=== PATIENT | female | born 1950 | race African-American/Black ===

== ENCOUNTER 2024-10-01 16:17 | Inpatient (IN) | payer OTHER ==
[~2024-10-01] VITALS: Ht 165.1 cm; Wt 69.9 kg
[2024-10-01 16:23] VITALS: O2SAT 99
[2024-10-01] MEDS: LORAZEPAM 1MG TABLET PO ONE (16:51)
[2024-10-01 17:32] LABS: BASOPHILS % 0.6 % (0.0-2.0); EOSINOPHILS % 0.7 % (0.0-5.0); HEMATOCRIT. 47.5 % (36.0-48.0); HEMOGLOBIN. 16.0 g/dL (12.0-16.0); LYMPHOCYTES % 21.9 % (20.0-50.0); MEAN PLATELET VOLUME 8.3 fl (7.4-10.4); MONOCYTES % 6.2 % (2.0-8.0); NEUTROPHILS % 70.6 % (40.0-76.0); PLATELET 203 x1000/uL (130-400); RED BLOOD CELL COUNT 5.28 mill/uL (4.2-5.4); RED CELL DISTRIBUTION WIDTH 14.9 % (11.6-14.6)
[2024-10-01 17:47] LABS: CREATININE 1.0 mg/dL (0.6-1.0); ETHANOL BLOOD < 10 mg/dL (<10); INR 1.0; TROPONIN I HIGH SENSITIVITY 34 ng/L (3.0-34); UREA NITROGEN BLOOD 12 mg/dL (9-23)
[2024-10-01 17:48] LABS: ASPARTATE AMINOTRANSFERASE 15 IU/L (<34)
[2024-10-01 17:49] LABS: BILIRUBIN DIRECT 0.2 mg/dL (<=3.0); BILIRUBIN TOTAL 0.7 mg/dL (0.1-1.0); PROTEIN TOTAL 7.7 g/dL (6.0-8.3)
[2024-10-01] MEDS: POTASSIUM CHLORIDE 20MEQ/PACKET PO NR (18:33)
[2024-10-01] MEDS: KCL 10MEQ/50ML PREMIX 50 ML IV NR (19:06)
[2024-10-01 23:00] VITALS: BP 161/95; PULSE 85; RESP 20; TEMP 36.4736
[2024-10-01] MEDS: LORAZEPAM 0.5MG TABLET PO PRN (23:28)
[2024-10-01] MEDS: CLONIDINE 0.1MG TABLET PO PRN (23:28)
[2024-10-02] VITALS: BP 137/86; PULSE 64; RESP 20; TEMP 36.6; O2SAT 95
[2024-10-02 04:00] VITALS: BP 106/67; PULSE 55; RESP 20; TEMP 36.9; O2SAT 92
[2024-10-02] MEDS ORDERED: AMLO5TAB5 PO (06:50)
[2024-10-02 07:14] LABS: BASOPHILS % 0.6 % (0.0-2.0); EOSINOPHILS % 0.5 % (0.0-5.0); HEMATOCRIT. 41.9 % (36.0-48.0); HEMOGLOBIN. 14.2 g/dL (12.0-16.0); LYMPHOCYTES % 20.0 % (20.0-50.0); MEAN PLATELET VOLUME 8.3 fl (7.4-10.4); MONOCYTES % 5.2 % (2.0-8.0); NEUTROPHILS % 73.7 % (40.0-76.0); PLATELET 183 x1000/uL (130-400); RED BLOOD CELL COUNT 4.70 mill/uL (4.2-5.4); RED CELL DISTRIBUTION WIDTH 14.6 % (11.6-14.6)
[2024-10-02 07:29] LABS: CREATININE 0.9 mg/dL (0.6-1.0); UREA NITROGEN BLOOD 15 mg/dL (9-23)
[2024-10-02 07:31] LABS: ASPARTATE AMINOTRANSFERASE 13 IU/L (<34)
[2024-10-02 07:32] LABS: BILIRUBIN TOTAL 0.7 mg/dL (0.1-1.0); PROTEIN TOTAL 6.5 g/dL (6.0-8.3)
[2024-10-02 08:00] VITALS: BP 127/86; PULSE 50; RESP 20; TEMP 36.4; O2SAT 94
[2024-10-02] MEDS ORDERED: ACETAMINOPHEN 325MG TABLET PO PRN (09:45)
[2024-10-02] MEDS ORDERED: ONDANSETRON HCL 4MG/2ML INJ IV PRN (09:45)
[2024-10-02] MEDS ORDERED: IPRATROPIUM/ALBUTEROL 0.5-3(2.5)MG/3ML NEB HHN PRN (09:45)
[2024-10-02] MEDS: FAMOTIDINE 20MG/2ML VIAL IV SCH (11:00)
[2024-10-02 11:38] LABS: CREATINE KINASE MB FRACTION 1.4 ng/mL (0.5-3.6)
[2024-10-02 11:46] LABS: TROPONIN I HIGH SENSITIVITY 45.0 ng/L (3.0-34)
[2024-10-02 12:00] VITALS: BP 111/79; PULSE 61; RESP 18; TEMP 36.4; O2SAT 96
[2024-10-02 13:30] LABS: CREATINE KINASE MB FRACTION < 0.5 ng/mL (0.5-3.6)
[2024-10-02 14:01] LABS: TROPONIN I HIGH SENSITIVITY 48 ng/L (3.0-34)
[2024-10-02 16:00] VITALS: BP 115/72; PULSE 60; RESP 19; TEMP 36.6; O2SAT 97
[2024-10-02 20:00] VITALS: BP 102/57; PULSE 52; RESP 17; TEMP 36.2; O2SAT 97
[2024-10-02] MEDS: ENOXAPARIN 40MG/0.4ML SYR SUBCUT SCH (21:09)
[2024-10-02] MEDS: ACETAMINOPHEN 325MG TABLET PO PRN (21:39)
[2024-10-03] VITALS: BP 105/67; PULSE 57; RESP 18; TEMP 36.5; O2SAT 94
[2024-10-03 04:00] VITALS: BP 111/59; PULSE 60; RESP 18; TEMP 36.6; O2SAT 99
[2024-10-03] MEDS: ASPIRIN 81MG TABLET PO SCH (10:15)
[2024-10-03 16:00] VITALS: BP 135/80; PULSE 70; RESP 19; TEMP 36.4; O2SAT 97
[2024-10-03 20:00] VITALS: BP 106/78; PULSE 77; RESP 18; TEMP 36.5; O2SAT 95
[2024-10-03] MEDS: ATORVASTATIN CALCIUM 40MG TABLET PO SCH (20:20)
[2024-10-04] VITALS: BP 108/62; PULSE 55; RESP 18; TEMP 36.3; O2SAT 94
[2024-10-04 04:00] VITALS: BP 105/65; PULSE 55; RESP 16; TEMP 36.6; O2SAT 97
[2024-10-04 08:00] VITALS: BP 131/64; PULSE 72; RESP 18; TEMP 36.9; O2SAT 98
[2024-10-04] MEDS: AMLODIPINE 5MG TABLET PO SCH (09:12)
[2024-10-04 12:00] VITALS: BP 128/60; PULSE 68; RESP 19; TEMP 36.2; O2SAT 99
[2024-10-04] MEDS: SERTRALINE HCL 25MG TABLET PO SCH (13:24)
[2024-10-04 20:00] VITALS: BP 124/68; PULSE 58; RESP 16; TEMP 36.6; O2SAT 97
[2024-10-05] VITALS: BP 126/65; PULSE 62; RESP 16; TEMP 36.4; O2SAT 98
[2024-10-05 04:00] VITALS: BP 126/82; PULSE 55; RESP 16; TEMP 37.1; O2SAT 97
[2024-10-05 08:00] VITALS: BP 115/70; PULSE 76; RESP 20; TEMP 36.4; O2SAT 98
[2024-10-05 12:00] VITALS: BP 146/74; PULSE 81; RESP 19; TEMP 36.1; O2SAT 98
[2024-10-05] MEDS: LIDOCAINE 5% PATCH TOP SCH (13:30)
[2024-10-05 16:00] VITALS: BP 130/72; PULSE 67; RESP 18; TEMP 36.4; O2SAT 98
[2024-10-05] MEDS: DOCUSATE SODIUM 100MG CAPSULE PO PRN (18:35)
[2024-10-05 20:00] VITALS: BP 131/72; PULSE 61; RESP 20; TEMP 36.5; O2SAT 94
[2024-10-05] MEDS: POLYETHYLENE GLYCOL 3350 (17GM) 1 DOSE PACK PO SCH (20:46)
[2024-10-06] VITALS: BP 127/77; PULSE 56; RESP 16; TEMP 36.6; O2SAT 97
[2024-10-06 04:00] VITALS: BP 136/80; PULSE 54; RESP 19; TEMP 36.5; O2SAT 95
[2024-10-06 08:00] VITALS: BP 122/82; PULSE 62; RESP 18; TEMP 36.6; O2SAT 96
[2024-10-06 12:00] VITALS: BP 114/68; PULSE 64; RESP 16; TEMP 36.5; O2SAT 100
[2024-10-06 16:00] VITALS: BP 144/68; PULSE 66; RESP 16; TEMP 36.6; O2SAT 100
[2024-10-06 20:00] VITALS: BP 133/75; PULSE 64; RESP 18; TEMP 36.4; O2SAT 98
[2024-10-07 04:00] VITALS: BP_SYST 122; BP_SYST 127; BP_DIAS 63; BP_DIAS 72; PULSE 63; PULSE 82; RESP 18; RESP 20; TEMP 36.3; TEMP 36.6; O2SAT 97; O2SAT 99
[2024-10-07 08:00] VITALS: BP 131/68; PULSE 56; RESP 18; TEMP 36.3; O2SAT 100
[2024-10-07 12:00] VITALS: BP 121/80; PULSE 54; RESP 17; TEMP 36.6; O2SAT 98
[2024-10-07 16:00] VITALS: BP 134/75; PULSE 67; RESP 18; TEMP 36.3; O2SAT 97
[2024-10-07 20:00] VITALS: BP 132/81; PULSE 76; RESP 18; TEMP 36.7; O2SAT 99
[2024-10-08] VITALS: BP 137/80; PULSE 76; RESP 20; TEMP 36.5; O2SAT 99
[2024-10-08 04:00] VITALS: BP 129/66; PULSE 81; RESP 18; TEMP 36.2; O2SAT 99
[2024-10-08] MEDS: HYDROXYZINE 25MG TABLET PO PRN (07:47)
[2024-10-08 08:00] VITALS: BP 130/83; PULSE 66; RESP 18; TEMP 36.5
[2024-10-08 12:00] VITALS: BP 132/78; PULSE 60; RESP 18; TEMP 36.4
[2024-10-08 16:00] VITALS: BP 121/80; PULSE 65; RESP 17; TEMP 36.6; O2SAT 97
[2024-10-09] VITALS: BP 141/77; PULSE 52; RESP 18; TEMP 36.3; O2SAT 97
[2024-10-09 04:00] VITALS: BP 136/68; PULSE 55; RESP 18; TEMP 36.2; O2SAT 97
[2024-10-09 08:00] VITALS: BP 139/88; PULSE 73; RESP 18; TEMP 36.8; O2SAT 99
[2024-10-09 12:00] VITALS: BP 144/101; PULSE 103; RESP 18; TEMP 36.7; O2SAT 97
[2024-10-09 16:00] VITALS: BP 144/101; PULSE 103; RESP 18; TEMP 36.6; O2SAT 96
[2024-10-10] VITALS: BP 128/79; PULSE 54; RESP 18; TEMP 36.3; O2SAT 98
[2024-10-10 04:00] VITALS: BP 139/79; PULSE 60; RESP 16; TEMP 36.6; O2SAT 97
[2024-10-10 08:00] VITALS: BP 139/85; PULSE 76; RESP 19; TEMP 36.4; O2SAT 96
[2024-10-10 12:00] VITALS: BP 124/83; PULSE 69; RESP 20; TEMP 36.3; O2SAT 95
[2024-10-10 16:00] VITALS: BP 139/87; PULSE 65; RESP 20; TEMP 36.3; O2SAT 96
[2024-10-10 20:00] VITALS: BP 155/83; PULSE 65; RESP 19; TEMP 36.6; O2SAT 97
[2024-10-11] VITALS: BP 131/75; PULSE 57; RESP 18; TEMP 36.5; O2SAT 97
[2024-10-11 04:00] VITALS: BP 126/90; PULSE 54; RESP 18; TEMP 36.4; O2SAT 98
[2024-10-11 08:00] VITALS: BP 144/86; PULSE 63; RESP 17; TEMP 36.1; O2SAT 97
[2024-10-11] MEDS: SERTRALINE HCL 50MG TABLET PO SCH (08:45)
[2024-10-11 12:00] VITALS: BP_SYST 113; BP_SYST 146; BP_DIAS 67; BP_DIAS 71; PULSE 64; RESP 16; RESP 17; TEMP 36.1; TEMP 36.9; O2SAT 98
[2024-10-11 16:00] VITALS: BP 169/69; PULSE 83; RESP 18; TEMP 36.2; O2SAT 97
[2024-10-11 20:00] VITALS: BP 123/69; PULSE 65; RESP 19; TEMP 36.4; O2SAT 95
[2024-10-12] VITALS: BP 113/66; PULSE 57; RESP 18; TEMP 36.4; O2SAT 95
[2024-10-12 04:00] VITALS: BP 128/73; PULSE 58; RESP 19; TEMP 36.6; O2SAT 97
[2024-10-12] MEDS ORDERED: LORAZEPAM 1MG TABLET PO PRN (06:37)
[2024-10-12 08:00] VITALS: BP 118/77; PULSE 58; RESP 16; TEMP 36.7; O2SAT 97
[2024-10-12 12:00] VITALS: BP 141/74; PULSE 60; RESP 17; TEMP 36.6; O2SAT 98
[2024-10-12 16:00] VITALS: BP 121/65; PULSE 64; RESP 18; TEMP 36.5; O2SAT 96
[2024-10-12 20:00] VITALS: BP 127/79; PULSE 68; RESP 16; TEMP 36.3; O2SAT 96
[2024-10-13 08:00] VITALS: BP 130/82; PULSE 52; RESP 20; TEMP 36.5; O2SAT 98
[2024-10-13 12:00] VITALS: BP 150/90; PULSE 82; RESP 18; TEMP 35.9; O2SAT 94
[2024-10-13 16:00] VITALS: BP 120/78; PULSE 66; RESP 18; TEMP 36.1; O2SAT 97
[2024-10-13 20:00] VITALS: BP 129/78; PULSE 58; RESP 18; TEMP 35.6; O2SAT 96
[2024-10-14 04:00] VITALS: BP 138/85; PULSE 62; RESP 19; TEMP 35.8; O2SAT 96
[2024-10-14 08:00] VITALS: BP 136/90; RESP 19; TEMP 36.3; O2SAT 95
[2024-10-14 12:00] VITALS: BP 115/73; PULSE 82; RESP 18; TEMP 36.5; O2SAT 98
[2024-10-14 16:00] VITALS: BP 127/77; PULSE 59; RESP 18; TEMP 36.1; O2SAT 95
[2024-10-14 20:00] VITALS: BP 120/72; PULSE 62; RESP 18; TEMP 36.8
[2024-10-15] VITALS: BP 127/70; PULSE 59; RESP 18; TEMP 36.4
[2024-10-15 04:00] VITALS: BP 122/76; PULSE 81; RESP 18; TEMP 36.9
[2024-10-15 07:59] VITALS: BP 149/80; PULSE 61; RESP 17; TEMP 36.5; O2SAT 100
[2024-10-15 12:00] VITALS: BP 114/69; PULSE 57; RESP 17; TEMP 36.3; O2SAT 97
[2024-10-15 16:00] VITALS: BP 117/61; PULSE 62; RESP 17; TEMP 36.2; O2SAT 98
[2024-10-15] MEDS: LORAZEPAM 0.5MG TABLET PO PRN (16:07)
[2024-10-15 20:00] VITALS: BP 91/60; PULSE 66; RESP 18; TEMP 36.4; O2SAT 97
[2024-10-16] VITALS: RESP 17
[2024-10-16 04:00] VITALS: BP 122/76; PULSE 68; RESP 16; TEMP 36.4
[2024-10-16 07:58] VITALS: BP 124/82; PULSE 96; RESP 18; TEMP 36.4; O2SAT 100
[2024-10-16 12:00] VITALS: BP 118/75; PULSE 73; RESP 18; TEMP 36.1; O2SAT 100
[2024-10-16 16:00] VITALS: BP 108/66; PULSE 68; RESP 17; TEMP 36.4; O2SAT 100
[2024-10-16 20:00] VITALS: BP 111/71; PULSE 61; RESP 18; TEMP 36.4; O2SAT 95
[2024-10-17 04:00] VITALS: BP 105/51; PULSE 63; RESP 18; TEMP 36.4; O2SAT 95
[2024-10-17 08:00] VITALS: BP 17/98; PULSE 102; RESP 17; TEMP 36.5; O2SAT 17
[2024-10-17 12:00] VITALS: BP 108/65; PULSE 61; RESP 18; TEMP 36.4; O2SAT 95
[2024-10-17 16:00] VITALS: BP 110/68; PULSE 56; RESP 17; TEMP 36.6; O2SAT 98
[2024-10-17 20:00] VITALS: BP 131/79; PULSE 62; RESP 18; TEMP 36.5; O2SAT 97
[2024-10-18] VITALS: BP 126/74; PULSE 60; RESP 18; TEMP 36.2; O2SAT 97
[2024-10-18 08:00] VITALS: BP 123/73; PULSE 60; RESP 16; TEMP 36.5; O2SAT 97
[2024-10-18 12:00] VITALS: BP 114/71; PULSE 57; RESP 18; TEMP 36.3; O2SAT 96
[2024-10-18 16:00] VITALS: BP 112/80; PULSE 58; RESP 18; TEMP 36.4; O2SAT 96
[2024-10-18 20:00] VITALS: BP 96/68; PULSE 63; RESP 19; TEMP 36.4; O2SAT 96
[2024-10-19] VITALS: BP 119/73; PULSE 57; RESP 18; TEMP 36.4; O2SAT 95
[2024-10-19 12:00] VITALS: BP 150/92; PULSE 88; RESP 20; TEMP 36.3; O2SAT 95
[2024-10-19 16:00] VITALS: BP 125/74; PULSE 70; RESP 20; TEMP 36.3; O2SAT 96
[2024-10-19 20:00] VITALS: BP 110/78; PULSE 75; RESP 18; TEMP 36.3; O2SAT 98
[2024-10-20] VITALS: BP 111/81; PULSE 77; RESP 18; TEMP 36.6; O2SAT 97
[2024-10-20 04:00] VITALS: BP 116/77; PULSE 62; RESP 18; TEMP 36.6; O2SAT 97
[2024-10-20 08:00] VITALS: BP 117/70; PULSE 64; RESP 18; TEMP 36.4; O2SAT 95
[2024-10-20] MEDS: LORAZEPAM 0.5MG TABLET PO PRN (09:15)
[2024-10-20] MEDS: CARBAMIDE PEROXIDE 6.5% OTIC SOLN 15ML EACH EAR SCH (10:46)
[2024-10-20 12:00] VITALS: BP 147/84; PULSE 85; RESP 18; TEMP 35.6; O2SAT 95
[2024-10-20 16:00] VITALS: BP 117/76; PULSE 70; RESP 19; TEMP 36.6; O2SAT 94
[2024-10-20 20:00] VITALS: BP 151/91; PULSE 75; RESP 18; TEMP 36.4; O2SAT 95
[2024-10-20] MEDS: BUSPIRONE HCL 5MG TABLET PO SCH (20:37)
[2024-10-21] VITALS: BP 110/74; PULSE 60; RESP 18; TEMP 36.6; O2SAT 97
[2024-10-21 04:00] VITALS: BP 122/77; PULSE 58; RESP 16; TEMP 36.3; O2SAT 95
[2024-10-21 08:00] VITALS: BP 123/75; PULSE 58; RESP 18; TEMP 36.4; O2SAT 98
[2024-10-21 12:00] VITALS: BP 115/65; PULSE 62; RESP 17; TEMP 36.8; O2SAT 99
[2024-10-21 16:00] VITALS: BP 120/73; PULSE 61; RESP 18; TEMP 36.8; O2SAT 99
[2024-10-21 20:00] VITALS: BP 128/79; PULSE 70; RESP 18; TEMP 36.7; O2SAT 98
[2024-10-21] MEDS: FAMOTIDINE 20MG/2ML VIAL IV SCH (21:30)
[2024-10-22] VITALS: BP 130/71; PULSE 86; RESP 20; TEMP 37.2; O2SAT 100
[2024-10-22 04:00] VITALS: BP 114/65; PULSE 65; RESP 19; TEMP 36.1; O2SAT 98
[2024-10-22 08:00] VITALS: BP 131/80; PULSE 60; RESP 17; TEMP 36.4; O2SAT 99
[2024-10-22 12:00] VITALS: BP 107/70; PULSE 57; RESP 17; TEMP 36.3; O2SAT 100
[2024-10-22 16:00] VITALS: BP 129/75; PULSE 68; RESP 17; TEMP 36.4; O2SAT 100
[2024-10-22 20:00] VITALS: BP 118/69; PULSE 68; RESP 19; TEMP 37.2; O2SAT 95
[2024-10-23] VITALS: BP 119/72; PULSE 64; RESP 20; TEMP 36.3; O2SAT 100
[2024-10-23 04:00] VITALS: BP 133/79; PULSE 64; RESP 64; TEMP 36.6; O2SAT 97
[2024-10-23 08:00] VITALS: BP 143/87; PULSE 64; RESP 19; TEMP 36.3; O2SAT 99
[2024-10-23 12:00] VITALS: BP 165/100; PULSE 89; RESP 18; TEMP 36.3; O2SAT 98
[2024-10-23 16:00] VITALS: BP 140/87; PULSE 82; RESP 19; TEMP 36.4; O2SAT 97
[2024-10-23 20:00] VITALS: BP 114/72; PULSE 66; RESP 16; TEMP 36.4; O2SAT 95
[2024-10-23] MEDS: LORATADINE 10MG TABLET PO SCH (21:50)
[2024-10-24] VITALS: BP 101/64; PULSE 55; RESP 18; TEMP 36.2; O2SAT 95
[2024-10-24 08:00] VITALS: BP 130/74; PULSE 58; RESP 16; TEMP 36.4; O2SAT 95
[2024-10-24 12:00] VITALS: BP 127/68; PULSE 57; RESP 16; TEMP 36.6; O2SAT 96
[2024-10-24 16:00] VITALS: BP 118/67; PULSE 58; RESP 18; TEMP 36.4; O2SAT 97
[2024-10-24 20:00] VITALS: BP 124/64; PULSE 55; RESP 18; TEMP 36.4; O2SAT 98
[2024-10-25] VITALS: BP 125/58; PULSE 58; RESP 18; TEMP 36.4; O2SAT 96
[2024-10-25 04:00] VITALS: BP 127/82; PULSE 69; RESP 18; TEMP 36.4; O2SAT 98
[2024-10-25 08:00] VITALS: BP 131/79; PULSE 60; RESP 16; TEMP 36.5; O2SAT 97
[2024-10-25 12:00] VITALS: BP 126/74; PULSE 65; RESP 16; TEMP 36.4; O2SAT 96
[2024-10-25 16:00] VITALS: BP 114/71; PULSE 68; RESP 18; TEMP 36.5; O2SAT 96
[2024-10-25 20:00] VITALS: BP 127/57; PULSE 57; RESP 18; TEMP 36.4; O2SAT 96
[2024-10-26] VITALS: BP 130/72; PULSE 65; RESP 19; TEMP 36.6; O2SAT 96
[2024-10-26 04:00] VITALS: BP 128/76; PULSE 68; RESP 18; TEMP 36.6; O2SAT 96
[2024-10-26 08:00] VITALS: BP 139/72; PULSE 58; RESP 18; TEMP 36.5; O2SAT 95
[2024-10-26 12:00] VITALS: BP 111/77; PULSE 71; RESP 18; TEMP 36.5; O2SAT 95
[2024-10-26 16:00] VITALS: BP 111/69; PULSE 69; RESP 18; TEMP 36.4; O2SAT 97
[2024-10-27 08:00] VITALS: BP 120/84; PULSE 101; RESP 18; TEMP 36.6; O2SAT 95
[2024-10-27 12:00] VITALS: BP 120/80; PULSE 99; RESP 16; TEMP 36.1; O2SAT 96
[2024-10-27] MEDS: HALOPERIDOL LACTATE 5MG/ML VIAL IM PRN (12:12)
[2024-10-27 16:00] VITALS: BP 104/68; PULSE 71; RESP 16; TEMP 36.5; O2SAT 97
[2024-10-27 20:00] VITALS: BP 113/74; PULSE 62; RESP 20; TEMP 35.8; O2SAT 95
[2024-10-28] VITALS: BP 135/73; PULSE 92; RESP 18; TEMP 35.7; O2SAT 97
[2024-10-28 04:00] VITALS: BP 122/78; PULSE 70; RESP 20; TEMP 35.9; O2SAT 96
[2024-10-28 08:00] VITALS: BP 136/82; PULSE 72; RESP 18; TEMP 36.1; O2SAT 97
[2024-10-28 12:00] VITALS: BP 129/74; PULSE 62; RESP 18; TEMP 36.5; O2SAT 98
[2024-10-28 16:00] VITALS: BP 132/72; PULSE 74; RESP 18; TEMP 36.6; O2SAT 97
[2024-10-28 20:00] VITALS: BP 123/79; PULSE 66; RESP 20; TEMP 36.1; O2SAT 97
[2024-10-28] MEDS: BUSPIRONE HCL 10MG TABLET PO SCH (21:50)
[2024-10-29] VITALS: BP 113/70; PULSE 57; RESP 20; TEMP 35.7; O2SAT 99
[2024-10-29 04:00] VITALS: BP 126/81; PULSE 60; RESP 20; TEMP 35.6; O2SAT 98
[2024-10-29 08:00] VITALS: BP 119/73; PULSE 67; RESP 18; TEMP 36.9; O2SAT 96
[2024-10-29 12:00] VITALS: BP 112/80; PULSE 64; RESP 18; TEMP 36.6; O2SAT 99
[2024-10-29 16:00] VITALS: BP 114/72; PULSE 62; RESP 17; TEMP 36.7; O2SAT 99
[2024-10-29 20:00] VITALS: BP 122/69; PULSE 59; RESP 20; TEMP 36.2; O2SAT 97
[2024-10-30] VITALS: BP 138/75; PULSE 60; RESP 20; TEMP 36.2; O2SAT 95
[2024-10-30 08:00] VITALS: BP 125/77; PULSE 56; RESP 19; TEMP 36.1; O2SAT 97
[2024-10-30 12:00] VITALS: BP 125/75; PULSE 62; RESP 18; TEMP 36.1; O2SAT 98
[2024-10-30 16:00] VITALS: BP 124/74; PULSE 57; RESP 18; TEMP 36.2; O2SAT 96
[2024-10-30 20:00] VITALS: BP 140/86; PULSE 60; RESP 20; TEMP 36.4; O2SAT 95
[2024-10-31] VITALS: BP 116/71; PULSE 53; RESP 20; TEMP 36.2; O2SAT 99
[2024-10-31 08:00] VITALS: BP 123/73; PULSE 64; RESP 17; TEMP 36.9; O2SAT 95
[2024-10-31] MEDS: HYDROXYZINE 25MG TABLET PO PRN (08:37)
[2024-10-31 12:00] VITALS: BP 138/86; PULSE 93; RESP 18; TEMP 36.7; O2SAT 95
[2024-10-31 16:00] VITALS: BP 135/80; PULSE 80; RESP 17; TEMP 36.7; O2SAT 95
[2024-10-31 20:00] VITALS: BP 117/75; PULSE 60; RESP 18; TEMP 36.3; O2SAT 95
[2024-11-01] VITALS: BP 133/73; PULSE 58; RESP 17; TEMP 36.4; O2SAT 96
[2024-11-01 04:00] VITALS: BP 121/82; PULSE 60; RESP 18; TEMP 36.3; O2SAT 96
[2024-11-01 08:00] VITALS: BP 118/72; PULSE 61; RESP 18; TEMP 36.5; O2SAT 96
[2024-11-01 12:00] VITALS: BP 129/83; PULSE 59; RESP 17; TEMP 36.4; O2SAT 96
[2024-11-01 16:00] VITALS: BP 124/75; PULSE 60; RESP 18; TEMP 36.4; O2SAT 96
[2024-11-01 20:00] VITALS: BP 123/72; PULSE 61; RESP 18; TEMP 36.5; O2SAT 97
[2024-11-02] VITALS: BP 130/72; PULSE 63; RESP 18; TEMP 36.6; O2SAT 96
[2024-11-02 04:00] VITALS: BP 129/71; PULSE 63; RESP 18; TEMP 36.6; O2SAT 96
[2024-11-02 08:00] VITALS: BP 118/68; PULSE 59; RESP 18; TEMP 36.5; O2SAT 97
[2024-11-02 12:00] VITALS: BP 132/72; PULSE 71; RESP 20; TEMP 36.4; O2SAT 97
[2024-11-02 16:00] VITALS: BP 122/72; PULSE 78; RESP 20; TEMP 36.5; O2SAT 97
[2024-11-03 08:00] VITALS: BP 139/97; PULSE 60; RESP 18; TEMP 36.4; O2SAT 97
[2024-11-03] MEDS: HYDROXYZINE 25MG TABLET PO PRN (10:26)
[2024-11-03 12:00] VITALS: BP 119/75; PULSE 66; RESP 18; TEMP 36.4; O2SAT 96
[2024-11-03 16:00] VITALS: BP 128/87; PULSE 85; RESP 19; TEMP 36.4; O2SAT 96
[2024-11-04 08:00] VITALS: BP 135/78; PULSE 65; RESP 18; TEMP 36.4; O2SAT 97
[2024-11-04 09:41] VITALS: BP 130/77; PULSE 74; RESP 20; TEMP 97.5
[2024-11-04 10:13] VITALS: BP 130/77; PULSE 74; RESP 20; TEMP 97.5
[2024-11-04] MEDS ORDERED: HYDR-3735 MT (10:37)
[2024-11-04] MEDS ORDERED: LORA10CA MT (10:37)
== END 2024-11-04 15:38 | disposition home or self-care (01) | DRG 70 ==
LOC: ER 16:17 → 8WST 21:11 → ENRESERV 22:17 → 8WST 10-02 14:15 → 6EST 10-06 02:15
PROVIDERS: ADMIT Internal Medicine; ATTEND Internal Medicine
DX: G93.40 Encephalopathy, unspecified (principal); I21.A1 Myocardial infarction type 2; I16.1 Hypertensive emergency; F03.94 Unspecified dementia, unspecified severity, with anxiety; M94.0 Chondrocostal junction syndrome [Tietze]; I10 Essential (primary) hypertension; E87.6 Hypokalemia; I69.320 Aphasia following cerebral infarction; J44.9 Chronic obstructive pulmonary disease, unspecified; E78.5 Hyperlipidemia, unspecified; R47.1 Dysarthria and anarthria; Z79.899 Other long term (current) drug therapy
CPT/HCPCS: 36415; 70551; 71045; 80048; 80053; 80076; 80320; 82550; 82553; 84443; 84484; 85025; 92523; 93005; 93306; 93970; 97162; 97166; 99291; A4606; J1308; J1630; J1650; J2060; J3480; G0480